=== PATIENT | female | born 1940 | race Caucasian/White ===

== ENCOUNTER 2018-01-22 13:31 | Outpatient (CLI) | payer MEDICARE ==
--- NOTE | 2018-01-22 15:22 | BD ---
BONE DENSITOMETRY USING DEXA: Date: 01/22/18 HISTORY: Postmenopausal screening for osteoporosis. FINDINGS: Lumbar Spine: BMD (g/cm2) L1 1.053 T-Score: 0.6 Z-Score: 2.8 L2 1.233 T-Score: 1.9 Z-Score: 4.3 L3 1.231 T-Score: 1.3 Z-Score: 3.9 L4 1.281 T-Score: 2.0 Z-Score: 4.6 L1-L4 1.199 T-Score: 1.4 Z-Score: 3.8 Femoral Neck: 0.87 T-Score: -0.3 Z-Score: 1.8 Total Femur: 1.082 T-Score: 1.1 Z-Score: 3.0 IMPRESSION: Normal bone mineral density. No evidence of osteopenia/osteoporosis. POS: JAMIE
== END 2018-01-22 13:32 | disposition home or self-care (01) ==
LOC: BICMAMMO 13:31
PROVIDERS: ATTEND Family Medicine
DX: Z12.31 Encounter for screening mammogram for malignant neoplasm of breast (principal); Z13.820 Encounter for screening for osteoporosis; N63.20 Unspecified lump in the left breast, unspecified quadrant
CPT/HCPCS: 77063; 77067; 77080

== ENCOUNTER 2018-01-31 13:41 | Outpatient (CLI) | payer MEDICARE ==
--- NOTE | 2018-01-31 15:42 | ULT ---
LEFT BREAST SONOGRAM: HISTORY: Left breast mass. Abnormal mammogram. FINDINGS: Mammographic evaluation of the superior aspect of the left breast, in the region of mammographic abno rmality, shows scattered fibroglandular densities. An oval hypoechoic lesion with posterior enhancem ent and a hyperechoic vascular hilum measures up to 0.5 cm and correlates with the mammographic abnor mality. It has the appearance of a small intramammary lymph node. No malignant characteristics are visible. No other masses. IMPRESSION: 1. Small intramammary lymph node, superior aspect, left breast. 2. BI-RADS category 2-Benign findings. Suggest routine mammographic followup. POS: FRANC
== END 2018-01-31 13:42 | disposition home or self-care (01) ==
LOC: BICULT 13:41
PROVIDERS: ATTEND Family Medicine
DX: N63.20 Unspecified lump in the left breast, unspecified quadrant (principal)

== ENCOUNTER 2024-04-24 16:18 | Emergency (ER) | payer MEDICARE ==
[2024-04-24 17:01] LABS: #Basophils 0.06 10x3/uL (0.0-0.2); %Basophils 0.6 % (0.0-1.0); %Eosinophils 0.9 % (0.0-10.0); %Lymphocytes 10.3 % (21.0-51.0); %Neutrophils 81.9 % (42.0-75.0); Hematocrit 41.3 % (36.0-47.0); Hemoglobin 14.1 g/dL (12.0-16.0); Mean Corpuscular HGB CONC 34.1 g/dL (32.0-36.0); Mean Corpuscular Hemoglobin 29.6 pg (27.0-31.0); Mean Corpuscular Volume 86.8 fL (78.0-98.0); Mean Platelet Volume 11.3 fL (7.4-10.4); Platelet Count 148 10x3/uL (130-400); Red Blood Cell (RBC) Count 4.76 mill/uL (4.20-5.40)
[2024-04-24 17:14] LABS: Troponin I 0.024 ng/mL (< 0.028)
[2024-04-24 17:19] LABS: ALT (SGPT) 22 U/L (Less than 34); AST (SGOT) 46 U/L (11-34); Alkaline Phosphatase 67 U/L (40-110); Anion Gap 16 mmol/L (10-20); BUN (Urea Nitrogen) 18 mg/dL (9.8-20.1); Bilirubin, Total 0.7 mg/dL (0.3-1.2); Calc. Creatinine Clearance 0 mL/min (70-130); Calcium 9.5 mg/dL (7.8-10.44); Carbon Dioxide 20 mmol/L (23-31); Chloride 106 mmol/L (98-107); Estimated GFR 66; Globulin 3.5 g/dL (2.4-3.5); Glucose 86 mg/dL (83-110); Potassium 4.1 mmol/L (3.5-5.1); Protein, Total 7.5 g/dL (5.8-8.1); Sodium 138 mmol/L (136-145)
[2024-04-24] MEDS ORDERED: CEFAZOLIN 2 GM VIAL ONE (19:12)
[2024-04-24] MEDS ORDERED: Sterile Water 10 ML ONE (19:32)
[2024-04-24] MEDS ORDERED: CEFAZOLIN 1 GM VIAL ONE (19:32)
== END 2024-04-24 19:59 | disposition home or self-care (01) ==
LOC: ERS 16:18
DX: L03.115 Cellulitis of right lower limb (principal); I10 Essential (primary) hypertension; M79.89 Other specified soft tissue disorders
CPT/HCPCS: 71046; 80053; 83880; 84484; 85025; 93005; 93971; 96372; 99284; J0690

== ENCOUNTER 2025-01-16 11:50 | Emergency (ER) | payer MEDICARE, OTHER ==
[2025-01-16 13:08] LABS: #Basophils 0.04 10x3/uL (0.0-0.2); #Eosinophils 0.20 10x3/uL (0.0-0.7); #Monocytes 0.72 10x3/uL (0.11-0.59); #Neutrophils 6.15 10x3/uL (1.40-6.50); %Basophils 0.5 % (0.0-1.0); %Eosinophils 2.3 % (0.0-10.0); %Lymphocytes 16.1 % (21.0-51.0); %Monocytes 8.5 % (0.0-10.0); %Neutrophils 72.1 % (42.0-75.0); Hematocrit 39.5 % (36.0-47.0); Hemoglobin 13.1 g/dL (12.0-16.0); Mean Corpuscular Hemoglobin 28.8 pg (27.0-31.0); Mean Corpuscular Volume 86.8 fL (78.0-98.0); Platelet Count 189 10x3/uL (130-400); Red Blood Cell (RBC) Count 4.55 mill/uL (4.20-5.40); White Blood Cell (WBC) Count 8.52 10x3/uL (4.8-10.8)
[2025-01-16 13:26] LABS: ALT (SGPT) 18 U/L (Less than 34); AST (SGOT) 26 U/L (11-34); Albumin 3.8 g/dL (3.1-4.5); Alkaline Phosphatase 76 U/L (40-110); Anion Gap 12 mmol/L (10-20); BUN (Urea Nitrogen) 16 mg/dL (9.8-20.1); Bilirubin, Total 0.9 mg/dL (0.3-1.2); Calc. Creatinine Clearance 0 mL/min (70-130); Calcium 9.4 mg/dL (7.8-10.44); Carbon Dioxide 26 mmol/L (23-31); Chloride 106 mmol/L (98-107); Globulin 2.7 g/dL (2.4-3.5); Glucose 100 mg/dL (83-110); Potassium 3.6 mmol/L (3.5-5.1); Sodium 140 mmol/L (136-145)
[2025-01-16 16:24] LABS: Bacteria/HPF None Seen HPF (None Seen); CAUTI Indications for Culture Dysuria,urgency,freq; Glucose, Urine (Dipstick) Normal (Negative); Leukocyte Negative Leu/uL (Negative); Protein, Urine (Dipstick) Negative (Neg-Trace); RBC/HPF 0-3 HPF (0-3); Specific Gravity, Urine 1.004 (1.002-1.036); WBC/HPF 0-3 HPF (0-3)
[2025-01-16 16:26] LABS: Urine Culture Reflex No No
== END 2025-01-16 15:17 | disposition home or self-care (01) ==
LOC: ERS 11:50
DX: F41.9 Anxiety disorder, unspecified (principal); R07.89 Other chest pain; I10 Essential (primary) hypertension; Z79.899 Other long term (current) drug therapy
CPT/HCPCS: 71045; 80053; 81001; 84484; 85025; 93005

== ENCOUNTER 2025-01-17 02:13 | Observation (INO) | payer MEDICARE, OTHER ==
[2025-01-17 03:06] LABS: #Basophils 0.04 10x3/uL (0.0-0.2); #Eosinophils 0.24 10x3/uL (0.0-0.7); #Monocytes 0.74 10x3/uL (0.11-0.59); #Neutrophils 5.85 10x3/uL (1.40-6.50); %Basophils 0.5 % (0.0-1.0); %Eosinophils 2.9 % (0.0-10.0); %Lymphocytes 16.4 % (21.0-51.0); %Monocytes 9.0 % (0.0-10.0); %Neutrophils 70.8 % (42.0-75.0); Hematocrit 36.9 % (36.0-47.0); Hemoglobin 12.5 g/dL (12.0-16.0); Mean Corpuscular Hemoglobin 28.6 pg (27.0-31.0); Mean Corpuscular Volume 84.4 fL (78.0-98.0); Platelet Count 186 10x3/uL (130-400); Red Blood Cell (RBC) Count 4.37 mill/uL (4.20-5.40); White Blood Cell (WBC) Count 8.25 10x3/uL (4.8-10.8)
[2025-01-17 03:26] LABS: ALT (SGPT) 15 U/L (Less than 34); AST (SGOT) 26 U/L (11-34); Albumin 3.5 g/dL (3.1-4.5); Alkaline Phosphatase 72 U/L (40-110); Anion Gap 15 mmol/L (10-20); BUN (Urea Nitrogen) 14 mg/dL (9.8-20.1); Bilirubin, Total 0.8 mg/dL (0.3-1.2); Calc. Creatinine Clearance 0 mL/min (70-130); Calcium 9.3 mg/dL (7.8-10.44); Carbon Dioxide 21 mmol/L (23-31); Chloride 107 mmol/L (98-107); Globulin 2.9 g/dL (2.4-3.5); Glucose 116 mg/dL (83-110); Potassium 3.3 mmol/L (3.5-5.1); Sodium 140 mmol/L (136-145)
[2025-01-17] MEDS ORDERED: Acetaminophen 325 MG TAB PO PRN (04:25)
[2025-01-17] MEDS ORDERED: Calcium Carbonate 500 MG ChewTAB PO PRN (04:25)
[2025-01-17] MEDS ORDERED: Ondansetron PF 4 MG/2 ML Vial IVP PRN (04:25)
[2025-01-17] MEDS ORDERED: Aspirin Chewable 81 MG TAB ONE (04:39)
[2025-01-17 05:39] LABS: Magnesium 1.6 mg/dL (1.6-2.6)
[2025-01-17] MEDS ORDERED: Non-Formulary Item 1 EACH (Losartan Potassium [Cozaar] 100 MG Tablet) PO SCH (09:00)
[2025-01-17] MEDS ORDERED: Non-Formulary Item 1 EACH (Esomeprazole Magnesium [Nexium] 40 MG Capsule.Dr) PO SCH (09:00)
[2025-01-17] MEDS ORDERED: Non-Formulary Item 1 EACH (Celecoxib [Celebrex] 200 MG Cap) PO SCH (09:00)
[2025-01-17] MEDS ORDERED: Cholecalciferol 1,000 UNITS (25 MCG) TAB PO SCH (09:00)
[2025-01-17] MEDS ORDERED: Aspirin 81 mg Enteric Coated Tablet PO SCH (09:00)
[2025-01-17] MEDS: Losartan 25 MG TAB PO SCH (10:47)
[2025-01-17] MEDS: Rosuvastatin 20 MG TAB PO SCH (10:47)
[2025-01-17] MEDS: Multivitamin W/ Minerals 1 TAB PO SCH (10:47)
[2025-01-17] MEDS: Pantoprazole 40 MG DR.TAB PO SCH (10:48)
[2025-01-17] MEDS: Aspirin 81 mg Enteric Coated Tablet PO SCH (10:48)
[2025-01-17] MEDS: Cholecalciferol 1,000 UNITS (25 MCG) TAB PO SCH (10:48)
[2025-01-17] MEDS ORDERED: Iopamidol 370 76% 100 ML VIAL ONE (12:19)
[2025-01-18 03:53] LABS: #Basophils 0.04 10x3/uL (0.0-0.2); #Eosinophils 0.41 10x3/uL (0.0-0.7); #Monocytes 0.59 10x3/uL (0.11-0.59); #Neutrophils 3.85 10x3/uL (1.40-6.50); %Basophils 0.6 % (0.0-1.0); %Eosinophils 6.3 % (0.0-10.0); %Lymphocytes 24.7 % (21.0-51.0); %Monocytes 9.0 % (0.0-10.0); %Neutrophils 59.1 % (42.0-75.0); Hematocrit 35.8 % (36.0-47.0); Hemoglobin 11.7 g/dL (12.0-16.0); Mean Corpuscular Hemoglobin 28.7 pg (27.0-31.0); Mean Corpuscular Volume 87.7 fL (78.0-98.0); Platelet Count 160 10x3/uL (130-400); Red Blood Cell (RBC) Count 4.08 mill/uL (4.20-5.40); White Blood Cell (WBC) Count 6.52 10x3/uL (4.8-10.8)
[2025-01-18 04:05] LABS: ALT (SGPT) 12 U/L (Less than 34); AST (SGOT) 23 U/L (11-34); Albumin 3.0 g/dL (3.1-4.5); Alkaline Phosphatase 63 U/L (40-110); Anion Gap 11 mmol/L (10-20); BUN (Urea Nitrogen) 14 mg/dL (9.8-20.1); Bilirubin, Total 0.6 mg/dL (0.3-1.2); Calc. Creatinine Clearance 61 mL/min (70-130); Calcium 8.8 mg/dL (7.8-10.44); Carbon Dioxide 24 mmol/L (23-31); Cardiac Risk 2.1 (Less than 4.5); Chloride 109 mmol/L (98-107); Cholesterol 96 mg/dl (< 200 Desired); Globulin 2.6 g/dL (2.4-3.5); Glucose 110 mg/dL (83-110); HDL Cholesterol 45 mg/dL (>60 Neg Risk); LDL Cholesterol, Calculated 41 mg/dL; Potassium 3.8 mmol/L (3.5-5.1); Sodium 140 mmol/L (136-145); Triglycerides 51 mg/dL (Less than 150)
[2025-01-18 12:37] VITALS: BMI 26.9
[2025-01-18 16:49] VITALS: BP 151/77; TEMP 98.3
== END 2025-01-18 17:35 | disposition home or self-care (01) ==
LOC: ERS 02:13 → 2SE 04:30
PROVIDERS: ADMIT Student in an Organized Health Care Education/Training Program; ATTEND Student in an Organized Health Care Education/Training Program
PROC: B24BZZZ Ultrasonography of Heart with Aorta (ICD-10-PCS; principal; 2025-01-17)
DX: G93.89 Other specified disorders of brain (principal); R47.1 Dysarthria and anarthria; E87.6 Hypokalemia; I08.2 Rheumatic disorders of both aortic and tricuspid valves; I37.1 Nonrheumatic pulmonary valve insufficiency; I10 Essential (primary) hypertension; E78.5 Hyperlipidemia, unspecified; Z88.0 Allergy status to penicillin; Z88.2 Allergy status to sulfonamides; Z88.1 Allergy status to other antibiotic agents; Z88.8 Allergy status to other drugs, medicaments and biological substances; Z79.899 Other long term (current) drug therapy
CPT/HCPCS: 70450; 70496; 70498; 70551; 71045; 71250; 80053; 80061; 82962; 83036; 83735; 84100; 84484; 85025; 93005; 93306; 97116; 99285; G0378 ×2; Q9967; 36415; 36416; 84443